=== PATIENT | male | born 1980 | race Caucasian/White ===

== ENCOUNTER → 2017-05-28 | Outpatient (CLI) | payer OTHER ==
--- NOTE | 2017-05-28 14:24 | US ---
EXAM DESCRIPTION: Gall Bladder: ULTRASOUND. CLINICAL HISTORY: UPPER QUADRANT PAIN COMPARISON: None. TECHNIQUE: Transabdominal scannin-dimensional and Doppler modes. FINDINGS: Gallbladder: Multiple echogenic stones which are mobile with patient change in position. Largest 1.1 cm. No fluid around the gallbladder. No wall thickening. 2.6 mm. Non-tender with transducer pressure. Common bile duct: caliber 3.7 mm within normal limits. Liver: Increased echogenicity; contour liver capsule smooth where seen. No fluid around the liver. Intrahepatic biliary ducts normal caliber. Doppler hepatopedal flow portal vein.. Long axis right lobe 13.5 cm. Pancreas: normal size and echogenicity. Duct not seen. Proximal abdominal aorta: diameter. IVC: visualized and normal caliber. Right kidney: long axis measures 9.9 cm. Normal Echogenicity. Normal cortical thickness. No hydronephrosis IMPRESSION: Multiple mobile gallstones, largest 1.1 cm. Nontender with no fluid around the gallbladder. Duct not dilated. No ascites. Fatty liver versus variety of metabolic or toxic conditions with normal size. Normal vascularity and ducts. Normal contour of the capsule with no ascites. Electronically signed by: Rico Romo MD 05/28/2017 2:22 PM CDT
== END ==
LOC: US 08:36
PROVIDERS: ATTEND Nurse Practitioner Acute Care
DX: K80.20 Calculus of gallbladder without cholecystitis without obstruction (principal)